=== PATIENT | male | born 1970 | race Caucasian/White ===

== ENCOUNTER 2022-06-16 14:14 | Emergency (ER) | payer OTHER, MEDICAID, SELFPAY ==
[2022-06-16 14:18] VITALS: BP 141/88; PULSE 65; RESP 18; TEMP 36.9; O2SAT 99; BMI 30.5
--- NOTE | 2022-06-16 14:29 | DI.RAD.S_ITS ---
PROCEDURE: XR CHEST 1V INDICATIONS: chest pain TECHNIQUE: One view of the chest was acquired. COMPARISON: None. FINDINGS: Surgical changes and devices: None. Lungs and pleura: Lungs are clear. No pleural effusions or pneumothorax. Mediastinum: Mediastinal contours appear normal. Heart size is enlarged. Low lung volumes accentuate pulmonary interstitium and heart size. Bones and chest wall: No suspicious bony lesions. Overlying soft tissues appear unremarkable. IMPRESSION: Cardiomegaly accentuated by low lung volumes Approved by: Mason Kidd M.D. on 06/16/2022 at 14:47
--- NOTE | 2022-06-16 14:31 | DI.CT.S_ITS ---
PROCEDURE: CT HEAD/BRAIN WO CON INDICATIONS: syncopal episode with head injury, c-spine tenderness TECHNIQUE: Noncontrast 4.5 mm thick angled axial sections acquired from the foramen magnum to the vertex, with coronal and sagittal reformats. For radiation dose reduction, the following was used: automated exposure control, adjustment of mA and/or kV according to patient size. COMPARISON: None. FINDINGS: Image quality: Excellent. CSF spaces: Basal cisterns are patent. No extra-axial fluid collections. The ventricles are symmetric in size and shape. Brain: No intracranial bleeds or masses. There is cerebral volume loss for age, with resultant ventricular and sulcal prominence. There are periventricular and deep white matter chronic small vessel ischemic changes. There is intracranial internal carotid artery atherosclerosis. Skull and face: Calvarium and visualized facial bones appear intact, without suspicious lesions. Sinuses: Visualized sinuses and mastoids are clear. IMPRESSION: No acute intracranial abnormality. Dictated by: Romeo Torres M.D. on 06/16/2022 at 14:47 Approved by: Romeo Torres M.D. on 06/16/2022 at 14:48
--- NOTE | 2022-06-16 14:31 | DI.CT.S_ITS ---
PROCEDURE: CT CERVICAL SPINE WO CON INDICATIONS: syncopal episode with head injury, c-spine tenderness TECHNIQUE: Noncontrast 3 mm thick sections acquired from the skull base to the T4 level. Sagittal and coronal reformats were then constructed. For radiation dose reduction, the following was used: automated exposure control, adjustment of mA and/or kV according to patient size. COMPARISON: None. FINDINGS: Image quality: Excellent. Bones: No fractures or dislocations. Visualized superior ribs are intact. There is straightening of the normal cervical lordosis Soft tissues: Prevertebral soft tissues are normal in thickness. No paravertebral hematomas. No apical pneumothoraces. Scattered deep cervical lymph nodes noted without evidence of elisabeth adenopathy IMPRESSION: In straightening the normal cervical lordosis may related to positioning muscle spasm. No evidence of fracture. Approved by: Mason Kidd M.D. on 06/16/2022 at 14:51
[2022-06-16 15:05] LABS: Add Manual Diff / Slide Review NO; Basophils Absolute Auto 0 /uL (0-100); Basophils Percent Auto 0.6 % (0-2); Eosinophils Absolute Auto 100 /uL (0-450); Eosinophils Percent Auto 1.9 % (2-4); Hematocrit 39.5 % (41-53); Hemoglobin 13.3 g/dL (13.5-17.5); Lymphocytes Absolute Auto 1600 /uL (1100-4500); Lymphocytes Percent Auto 23.5 % (25-40); Mean Corpuscular HGB Conc 33.6 % (30-36); Mean Corpuscular Volume 89.1 fL (80-100); Monocytes Absolute Auto 600 /uL (0-900); Monocytes Percent Auto 8.2 % (3-14); Neutrophils Absolute Auto 4600 /uL (1500-7000); Neutrophils Percent Auto 65.8 % (50-75); Platelet Count 169 X10^3/uL (150-400); Red Blood Cell Count 4.43 X10^6/uL (4.5-5.9); Red Cell Distribution Width 13.1 % (11.6-14.8)
[2022-06-16 15:10] LABS: INR 0.9 (0.9-1.3); Prothrombin Time 10.8 SECONDS (10.1-12.7)
[2022-06-16 15:13] LABS: PTT Partial Thromboplastin Tim 27 SECONDS (26-36)
--- NOTE | 2022-06-16 15:16 | ED_ITS ---
HPI - Syncope General Chief Complaint: Syncope Stated Complaint: dizzy in shower/passed out sitting down/BP 142/90 Time Seen by Provider: 06/16/22 14:56 Source: patient Mode of arrival: Ambulatory Limitations: no limitations History of Present Illness HPI narrative: Patient is a 51-year-old male presenting today with a syncopal episode. He reports that he was getting out of the shower today when he felt extremely lightheaded like he pass out and then he did out. He hit his left cheek bone on the carpet. He is not take any blood thinners or any other medications. He denies any chest pain or palpitations. He reports that he passed out 1 2 times this year already. Once while sitting drinking coffee with friends and the other will walk-in cross the yd. These instances were 5-6 months ago. He does not take any medication he does not go to the doctor. He admits to drinking 1 or 2 glasses of alcohol nightly but has not had anything to drink today. He is not on any blood thinners he takes no medication. He is not been ill. This has happened to him twice before he starting to have some symptoms. He is never been evaluated. He denies any recent travel. Related Data Allergies Allergy/AdvReac Type Severity Reaction Status Date / Time No Known Drug Allergies Allergy Verified 06/16/22 14:26 Review of Systems Review of Systems ROS Unobtainable: All systems reviewed & are unremarkable except as noted in HPI and below Patient History Social History Smoking Status: Former smoker Smoking Status: Former smoker alcohol intake frequency: 0-2 drinks per day Substance Use Type: marijuana Exam Initial Vital Signs Initial Vital Signs: Vital Signs Temperature 98.4 F 06/16/22 14:18 Pulse Rate 65 06/16/22 14:18 Respiratory Rate 18 06/16/22 14:18 Blood Pressure 141/88 H 06/16/22 14:18 Pulse Oximetry 99 06/16/22 14:18 Oxygen Delivery Method Room Air 06/16/22 14:18 GENERAL: Alert pleasant well-appearing 51-year-old male HEENT: Head atraumatic,EOMI, pupils reactive, face symmetric, moist mucous membranes NECK: No vertebral tenderness mild right-sided tenderness CARDIOVASCULAR: Regular rate and rhythm without murmurs, rubs or gallops. RESPIRATORY: Breath sounds equal bilaterally, no wheezes rales or rhonchi. ABDOMEN: Soft, nontender. Normoactive bowel sounds all 4 quadrants. No guarding or rebound. EXTREMITIES: Normal range of motion, no clubbing or edema. Neurovascularly intact NEUROLOGICAL: Alert and oriented x4.Normal gait and speech. Cranial nerves II through XII grossly intact. 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 Course Orders Ordered: ED Orders 06/16/22 14:29 XR chest 1V Stat EKG-12 Lead Stat 06/16/22 14:31 CT cervical spine wo con Stat CT head/brain wo con Stat 06/16/22 14:55 Complete Blood Count AUTO DIFF Stat Comprehensive Metabolic Panel Stat D Dimer Stat Lipase Stat Magnesium Stat PTT Partial Thromboplastin Juan Stat Prothrombin Time INR Stat Troponin & CK Cardiac Panel Stat 06/16/22 15:51 EKG-12 Lead Stat Discontinued Medications Aspirin (Aspirin 81 Mg Chew Tab) 324 mg PO NOW ONE Stop: 06/16/22 14:30 Last Admin: 06/16/22 16:51 Dose: Not Given Documented By: NR Vital Signs Vital signs: Vital Signs - 8 hr 06/16/22 14:18 06/16/22 15:35 06/16/22 15:46 Temperature 98.4 F Pulse Rate 65 52 L 58 L Respiratory Rate 18 27 H 18 Blood Pressure 141/88 H Pulse Oximetry 99 98 99 Oxygen Delivery Method Room Air 06/16/22 15:46 06/16/22 16:00 06/16/22 16:00 Temperature Pulse Rate 51 L Respiratory Rate 20 Blood Pressure 149/84 H 148/85 H Pulse Oximetry 98 Oxygen Delivery Method MDM - Syncope Lab Data 06/16/22 14:55 06/16/22 14:55 Labs: Lab Results 06/16/22 06/16/22 06/16/22 Range/Units 14:55 14:55 14:55 WBC 7.0 (4.5-11.0) X10^3/uL RBC 4.43 L (4.5-5.9) X10^6/uL Hgb 13.3 L (13.5-17.5) g/dL Hct 39.5 L (41-53) % MCV 89.1 (80-100) fL MCH 30.0 (26-34) PG MCHC 33.6 (30-36) % RDW 13.1 (11.6-14.8) % Plt Count 169 (150-400) X10^3/uL Neut % (Auto) 65.8 (50-75) % Lymph % (Auto) 23.5 L (25-40) % [place] % (Auto) 8.2 (3-14) % Eos % (Auto) 1.9 L (2-4) % Baso % (Auto) 0.6 (0-2) % Neut # (Auto) 4600 (2110-0410) /uL Lymph # (Auto) 1600 (7206-6129) /uL [place] # (Auto) 600 (0-900) /uL Eos # (Auto) 100 (0-450) /uL Baso # (Auto) 0 (0-100) /uL PT 10.8 (10.1-12.7) SECONDS INR 0.9 (0.9-1.3) APTT 27 (26-36) SECONDS D-Dimer (<500) ng/ml Sodium 139 (137-145) mmol/L Potassium 4.0 (3.4-5.1) mmol/L Chloride 106 (98-107) mmol/L Carbon Dioxide 26 (22-32) mmol/L BUN 16 (9-20) mg/dL Creatinine 1.08 (0.66-1.25) mg/dL Estimated GFR > 60 (>60) mL/min BUN/Creatinine Ratio 14.8 (6-22) Glucose 103 H (70-100) mg/dL Calcium 8.9 (8.4-10.2) mg/dL Magnesium 1.9 (1.6-2.3) mg/dL Total Bilirubin 0.5 (0.2-1.3) mg/dL AST 24 (17-59) IU/L ALT 23 (<50) IU/L Alkaline Phosphatase 62 (38-126) U/L Total Creatine Kinase 75 (55-170) U/L CK-MB (CK-2) TNP CK-MB (CK-2) Rel Index TNP Troponin I < 0.012 (0.01-0.034) ng/mL Total Protein 7.1 (6.3-8.2) g/dL Albumin 4.3 (3.5-5.0) g/dL Globulin 2.8 (1.7-4.1) g/dL Albumin/Globulin Ratio 1.5 (1.0-2.8) Lipase 90 (23-300) U/L 06/16/22 Range/Units 14:55 WBC (4.5-11.0) X10^3/uL RBC (4.5-5.9) X10^6/uL Hgb (13.5-17.5) g/dL Hct (41-53) % MCV (80-100) fL MCH (26-34) PG MCHC (30-36) % RDW (11.6-14.8) % Plt Count (150-400) X10^3/uL Neut % (Auto) (50-75) % Lymph % (Auto) (25-40) % [place] % (Auto) (3-14) % Eos % (Auto) (2-4) % Baso % (Auto) (0-2) % Neut # (Auto) (7411-5635) /uL Lymph # (Auto) (1883-0885) /uL [place] # (Auto) (0-900) /uL Eos # (Auto) (0-450) /uL Baso # (Auto) (0-100) /uL PT (10.1-12.7) SECONDS INR (0.9-1.3) APTT (26-36) SECONDS D-Dimer 242 (<500) ng/ml Sodium (137-145) mmol/L Potassium (3.4-5.1) mmol/L Chloride (98-107) mmol/L Carbon Dioxide (22-32) mmol/L BUN (9-20) mg/dL Creatinine (0.66-1.25) mg/dL Estimated GFR (>60) mL/min BUN/Creatinine Ratio (6-22) Glucose (70-100) mg/dL Calcium (8.4-10.2) mg/dL Magnesium (1.6-2.3) mg/dL Total Bilirubin (0.2-1.3) mg/dL AST (17-59) IU/L ALT (<50) IU/L Alkaline Phosphatase (38-126) U/L Total Creatine Kinase (55-170) U/L CK-MB (CK-2) CK-MB (CK-2) Rel Index Troponin I (0.01-0.034) ng/mL Total Protein (6.3-8.2) g/dL Albumin (3.5-5.0) g/dL Globulin (1.7-4.1) g/dL Albumin/Globulin Ratio (1.0-2.8) Lipase (23-300) U/L Imaging Data CT scan - head: Radiologist's Impression: PROCEDURE:? CT HEAD/BRAIN WO CON ? INDICATIONS:? syncopal episode with head injury, c-spine tenderness ? TECHNIQUE:? Noncontrast 4.5 mm thick angled axial sections acquired from the foramen magnum to the vertex, with coronal and sagittal reformats.? For radiation dose reduction, the following was used:? automated exposure control, adjustment of mA and/or kV according to patient size.? ? COMPARISON:? None. ? FINDINGS:? Image quality:? Excellent.? ? CSF spaces:? Basal cisterns are patent.? No extra-axial fluid collections.? The ventricles are symmetric in size and shape.? ? Brain:? No intracranial bleeds or masses.? There is cerebral volume loss for age, with resultant ventricular and sulcal prominence.? There are periventricular and deep white matter chronic small vessel ischemic changes.? There is intracranial internal carotid artery atherosclerosis.? ? Skull and face:? Calvarium and visualized facial bones appear intact, without suspicious lesions.? ? Sinuses:? Visualized sinuses and mastoids are clear.? ? IMPRESSION:? No acute intracranial abnormality. ? ? Dictated by: Romeo Torres M.D. on 06/16/2022 at 14:47 ? ? Approved by: Romeo Torres M.D. on 06/16/2022 at 14:48 CT - cervical spine: Radiologist's Impression: PROCEDURE:? CT CERVICAL SPINE WO CON ? INDICATIONS:? syncopal episode with head injury, c-spine tenderness ? TECHNIQUE:? Noncontrast 3 mm thick sections acquired from the skull base to the T4 level.? Sagittal and coronal reformats were then constructed.? For radiation dose reduction, the following was used:? automated exposure control, adjustment of mA and/or kV according to patient size.? ? COMPARISON:? None. ? FINDINGS:? Image quality:? Excellent.? ? Bones:? No fractures or dislocations.? Visualized superior ribs are intact.? There is straightening of the normal cervical lordosis ? Soft tissues:? Prevertebral soft tissues are normal in thickness.? No paravertebral hematomas.? No apical pneumothoraces.? Scattered deep cervical lymph nodes noted without evidence of elsiabeth adenopathy ? ? IMPRESSION:? ? In straightening the normal cervical lordosis may related to positioning muscle spasm.? No evidence of fracture. ? Approved by: Mason Kidd M.D. on 06/16/2022 at 14:51? Chest x-ray: Radiologist's Impression: PROCEDURE:? XR CHEST 1V ? INDICATIONS:? chest pain ? TECHNIQUE:? One view of the chest was acquired.? ? COMPARISON:? None. ? FINDINGS:? ? Surgical changes and devices:? None.? ? Lungs and pleura:? Lungs are clear.? No pleural effusions or pneumothorax.? ? Mediastinum:? Mediastinal contours appear normal.? Heart size is enlarged.? Low lung volumes accentuate pulmonary interstitium and heart size.? ? Bones and chest wall:? No suspicious bony lesions.? Overlying soft tissues appear unremarkable.? ? IMPRESSION:? ? Cardiomegaly accentuated by low lung volumes ? ? ? Approved by: Mason Kidd M.D. on 06/16/2022 at 14:47? ECG Data Interpretation: EKG 1. Normal sinus rhythm rate 59 WI interval 150 QRS 90 QTC 384 T-wave inversion noted in lead [address] changes no other T-wave inversions normal intervals EKG 2. Sinus rhythm rate 49% T-wave inversion noted in lead 3 MDM Narrative Medical decision making narrative: Patient presents with a syncopal episode today after hitting his head. No obvious reason why. Possible vasovagal coming out from a hot shower. This does not explain the [address] C-spine CT are negative. Heart rate is noted to be normal sinus rhythm but slightly bradycardic. He is not on medications to explain this. I suspect vasovagal versus cardiac arrhythmia. Would likely benefit from a Holter monitor. Blood work is otherwise overall reassuring without leukocytosis anemia electrolyte abnormality or VIDHYA. D-dimer is also negative, ruling out any pulmonary embolism unlikely any dissection Discharge Plan Departure Patient Disposition: Home Clinical Impression: Vasovagal syncope Instructions: DI for Syncope in Adults (Fainting) Activity Restrictions/Additional Instructions: *You have been diagnosed with syncopal episode *What to do: At this time he may require Holter monitor to monitor your heart rate. You may also require further outpatient studies. Please be sure to stay hydrated. *Continue to take medications as directed *Follow up with your primary care provider in 2-3 days or call [phone] *Return to ER if you should have recurrent episode of passing out chest pain palpitations or any new, worsening or concerning symptoms Referrals: Lydia Mondragon PA-C [Primary Care Provider] - Stand Alone Forms: Patient Portal/API
[2022-06-16 15:19] LABS: Alanine Aminotransferase 23 IU/L (<50); Albumin 4.3 g/dL (3.5-5.0); Albumin Globulin Ratio 1.5 (1.0-2.8); Alkaline Phosphatase 62 U/L (38-126); Aspartate Aminotransferase 24 IU/L (17-59); BUN Creatinine Ratio 14.8 (6-22); Bilirubin Total 0.5 mg/dL (0.2-1.3); Blood Urea Nitrogen 16 mg/dL (9-20); Calcium 8.9 mg/dL (8.4-10.2); Carbon Dioxide 26 mmol/L (22-32); Chloride 106 mmol/L (98-107); Creatine Kinase 75 U/L (55-170); Estimated Glomerular Filt Rate > 60 mL/min (>60); Globulin 2.8 g/dL (1.7-4.1); Glucose 103 mg/dL (70-100); HEMOLYSIS < 15 (0-50); Lipase 90 U/L (23-300); Magnesium 1.9 mg/dL (1.6-2.3); Sodium 139 mmol/L (137-145); Total Protein 7.1 g/dL (6.3-8.2)
[2022-06-16 15:30] LABS: Troponin I < 0.012 ng/mL (0.01-0.034)
[2022-06-16 15:35] VITALS: PULSE 52; RESP 27; O2SAT 98
[2022-06-16 15:46] VITALS: BP 149/84; PULSE 58; RESP 18; O2SAT 99
[2022-06-16 16:00] VITALS: BP 148/85; PULSE 51; RESP 20; O2SAT 98
--- NOTE | 2022-06-16 16:07 | PC.NURSE ---
c collar removed per Dr. Feng.
[2022-06-16 16:32] LABS: D Dimer 242 ng/ml (<500)
== END 2022-06-16 16:52 | disposition home or self-care (01) ==
PROVIDERS: Emergency Provider Emergency Medicine; Family Provider Physician Assistant; PCP Physician Assistant
DX: R55 Syncope and collapse (principal); S09.90XA Unspecified injury of head, initial encounter; R07.9 Chest pain, unspecified; Z20.822 Contact with and (suspected) exposure to COVID-19
CPT/HCPCS: 36415; 70450; 71045; 72125; 80053; 82550; 83690; 83735; 84484; 85025; 85379; 85610; 85730; 93005; 99283; 99284